=== PATIENT | female | born 1955 | race Two or more races ===

== ENCOUNTER 2019-04-16 16:03 | Inpatient (IN) | payer OTHER ==
[~2019-04-16] VITALS: Ht 160 cm; Wt 56.2 kg
[2019-04-16] MEDS ORDERED: MELO-105 PO (16:15)
[2019-04-16 16:27] LABS: BASOPHILS % (AUTO) 0.3 % (0.0-2.0); HEMOGLOBIN 12.3 g/dL (10.9-14.3); LYMPHOCYTES # (AUTO) 1.2 K/uL (20.0-40.0); LYMPHOCYTES % (AUTO) 7.8 % (20.5-51.5); MEAN CORPUSCULAR HEMOGLOBIN 31.5 uug (24.7-32.8); MEAN CORPUSCULAR HGB CONC 33 g/dL (32.3-35.6); MEAN CORPUSCULAR VOLUME 94.9 fL (75.5-95.3); MONOCYTES # (AUTO) 1.5 K/uL (2.0-10.0); MONOCYTES % (AUTO) 9.4 % (0.0-11.0); NEUTROPHILS % (AUTO) 82.5 % (38.5-71.5); PLATELET COUNT (AUTO) 237 K/uL (179-408); WHITE BLOOD COUNT (AUTO) 15.8 K/uL (3.8-11.8)
[2019-04-16 16:32] LABS: *BILIRUBIN,URIN 2+ (NEGATIVE); *BLOOD, URINE NEGATIVE (NEGATIVE); *KETONES,URINE NEGATIVE (NEGATIVE); *UROBILINOGEN,URINE 0.2 E.U./dl (NORMAL); LEUKOCYTE ESTERASE ,URINE NEGATIVE (NEGATIVE); NITRITE, URINE POSITIVE (NEGATIVE); PH,URINE 5.5 (5.0-8.0); UGLUCOSE NEGATIVE (NEGATIVE)
[2019-04-16 16:39] LABS: *CLARITY,URINE HAZY (CLEAR); *COLOR,URINE ORANGE (YELLOW)
[2019-04-16 16:40] LABS: BACTERIA,URINE MODERATE /HPF (NONE SEEN); RBC,URINE 0-3 /HPF (0-3); SQUAMOUS EPITHELIAL CELL,UR FEW /HPF (NONE SEEN)
[2019-04-16 16:41] LABS: COARSE GRANULAR CASTS,URINE 0-3 /LPF; MUCUS,URINE MANY /LPF (0-FEW)
[2019-04-16 16:51] LABS: CREATININE 1.9 mg/dL (0.6-1.3); POTASSIUM 4.1 mmol/L (3.5-5.1)
[2019-04-16 16:56] LABS: BILIRUBIN,DIRECT 0.2 mg/dL (0.0-0.2); TOTAL PROTEIN, SERUM 7.7 g/dL (6.4-8.2)
[2019-04-16] MEDS ORDERED: ONDANSETRON 4 MG/2 ML VIAL IV ONE (18:00)
[2019-04-16] MEDS ORDERED: MORPHINE SULFATE 4 MG/1 ML DISP.SYRIN IV ONE (18:00)
[2019-04-16] MEDS ORDERED: MORPHINE SULFATE 4 MG/1 ML DISP.SYRIN ONE (18:07)
[2019-04-16] MEDS ORDERED: ONDANSETRON 4 MG/2 ML VIAL ONE (18:07)
[2019-04-16] MEDS ORDERED: METRONIDAZOLE 500 MG/NS 100 ML PIGGYBACK IV ONE (18:45)
[2019-04-16] MEDS ORDERED: PIPERACILLIN SODIUM/TAZOBACTAM 3.375 G in IV DEXTROSE 5% 50 ML IV ONE (18:45)
[2019-04-16] MEDS ORDERED: METRONIDAZOLE 500 MG/NS 100ML 100 ML IV ONE (18:46)
[2019-04-16] MEDS ORDERED: PIPERACILLIN/TAZOBACTAM/D5W 50 ML IV ONE (18:47)
[2019-04-16] MEDS ORDERED: PIPERACILLIN/TAZOBACTAM/D5W 0 ML IV ONE (18:47)
--- NOTE | 2019-04-16 20:29 | NUR ---
Humza ANGELO CALLED BACK PT OK TO ADMIT TO [facility]
[2019-04-16] MEDS ORDERED: HYDROCODONE/APAP 5-325MG TABLET PO PRN (20:45)
[2019-04-16] MEDS ORDERED: MAGNESIUM HYDROXIDE 30 ML LIQUID UDC PO PRN (20:45)
[2019-04-16] MEDS ORDERED: Z GUARD REMEDY PASTE 57 GM TUBE TOP PRN (20:45)
[2019-04-16] MEDS ORDERED: MORPHINE SULFATE 2 MG/1 ML DISP.SYRIN IV PRN (20:45)
[2019-04-16] MEDS ORDERED: ONDANSETRON 4 MG/2 ML VIAL IV PRN (20:45)
[2019-04-16] MEDS ORDERED: PIPERACILLIN/TAZO 2.25 G in IV DEXTROSE 5% 50 ML IV SCH (20:45)
--- NOTE | 2019-04-16 21:15 | NUR ---
Pt. admitted to [facility] , under care of Dr. Crawley Belongs List completed, MRSA swab done
--- NOTE | 2019-04-16 21:30 | NUR ---
RECEIVED PATIENT VIA GURNEY FROM ER WITH NIECE AT BEDSIDE. PATIENT IS A/O X4. BANGLADESHI SPEAKING AND REQUIRES [employer]. PER NIECE, PATIENT DENIES PAIN AT THIS TIME. TEMPERATURE 101.3, ALL OTHER VSS. H/L INTACT AND PATENT. ORIENTED PATIENT TO ROOM AND CALL LIGHT. CALL LIGHT IN REACH. ALL NEEDS ATTENDED. WILL CONTINUE TO MONITOR AND ASSESS.
[2019-04-16] MEDS: ACETAMINOPHEN 325 MG TABLET PO PRN (21:40)
--- NOTE | 2019-04-16 21:40 | NUR ---
PATIENT GIVEN ICE BAGS FOR COOLING MEASURES AND TYLENOL 650MG PO PRN FOR ELEVATED TEMP. WILL CONTINUE TO MONITOR AND ASSESS.
[2019-04-16 21:45] VITALS: BP 114/55
[2019-04-16] MEDS: IV D5 1/2 NS 1000 ML 1,000 ML IV PRN (21:56)
--- NOTE | 2019-04-16 23:10 | NUR ---
RECHECKED PATIENTS TEMPERATURE, 98.3. PATIENT IS AFEBRILE. ALL NEEDS ATTENDED.
[2019-04-17] MEDS ORDERED: PIPERACILLIN/TAZOBACTAM/D5W 50 ML ONE (01:20)
[2019-04-17] MEDS ORDERED: PIPERACILLIN/TAZO 2.25 G in IV DEXTROSE 5% 50 ML IV ONE (04:00)
[2019-04-17 04:22] VITALS: BP 102/48
[2019-04-17] MEDS: IV D5 1/2 NS 1000 ML 1,000 ML IV PRN ×2 (06:14→21:28)
--- NOTE | 2019-04-17 06:43 | NUR ---
patient awake in bed. slept well. vss. ivf infusing well. vss. denies pain. all needs attended. will continue to monitor and assess.
[2019-04-17 06:47] LABS: CREATININE 1.6 mg/dL (0.6-1.3); MAGNESIUM 2.3 mg/dL (1.8-2.4); PHOSPHOROUS 2.9 mg/dL (2.5-4.9); POTASSIUM 3.4 mmol/L (3.5-5.1)
[2019-04-17 06:49] LABS: BASOPHILS % (AUTO) 0.1 % (0.0-2.0); EOSINOPHILS % (AUTO) 0.3 % (0.0-7.0); HEMATOCRIT 34.5 % (31.2-41.9); HEMOGLOBIN 11.7 g/dL (10.9-14.3); LYMPHOCYTES % (AUTO) 8.5 % (20.5-51.5); MEAN CORPUSCULAR HEMOGLOBIN 32.4 uug (24.7-32.8); MEAN CORPUSCULAR HGB CONC 34 g/dL (32.3-35.6); MEAN CORPUSCULAR VOLUME 95.8 fL (75.5-95.3); MONOCYTES % (AUTO) 8.9 % (0.0-11.0); NEUTROPHILS # (AUTO) 9.2 K/uL (1.8-8.9); NEUTROPHILS % (AUTO) 82.2 % (38.5-71.5); PLATELET COUNT (AUTO) 199 K/uL (179-408); WHITE BLOOD COUNT (AUTO) 11.2 K/uL (3.8-11.8)
--- NOTE | 2019-04-17 08:00 | NUR ---
Received pt. resting in bed alert oriented x4 pashto speaking. Pt. has IV in L AC 20 gauge intact patent running prescribed fluids. Pt. c/o pain in abdomen will assess pain and provide PRN pain mediations. Pt. NPO since midnight. Awaiting surgery. Safety measures in place. Call light within reach. Will continue to monitor pt.
[2019-04-17] MEDS: PANTOPRAZOLE SODIUM 40 MG VIAL IV SCH (08:30)
[2019-04-17] MEDS ORDERED: POTASSIUM CHLORIDE 50 ML IV SCH (11:30)
[2019-04-17 11:58] VITALS: BP 85/44
[2019-04-17] MEDS ORDERED: BUPIVACAINE/EPI PF 0.25% 30 ML VIAL ONE (13:05)
[2019-04-17] MEDS ORDERED: LIDOCAINE 0.5% MPF 50 ML VIAL ONE (13:05)
[2019-04-17] MEDS ORDERED: MIDAZOLAM HCL 10 MG/2 ML VIAL ONE (13:29)
[2019-04-17] MEDS ORDERED: FLUMAZENIL 0.5 MG/5 ML VIAL ONE (13:29)
[2019-04-17] MEDS ORDERED: ROCURONIUM BROMIDE 50 MG/5 ML VIAL ONE (13:30)
[2019-04-17] MEDS: PIPERACILLIN/TAZOBACTAM/D5W 3.375 G in IV DEXTROSE 5% 50 ML IV SCH ×2 (14:00→21:27)
--- NOTE | 2019-04-17 14:00 | NUR ---
Pt. left to surgery. Provided OR nurses with Zosyn as they stated they will give this to the patient in OR. Pt. in stable condition. Safety measures in place.
[2019-04-17] MEDS ORDERED: PROPOFOL 200 MG/20 ML BOTTLE IV ONE (14:30)
[2019-04-17] MEDS ORDERED: IV NORMAL SALINE 1000 ML BAG IV ONE ×2 (14:30)
[2019-04-17] MEDS ORDERED: GLYCOPYRROLATE 0.2 MG/ML VIAL IJ ONE (14:30)
[2019-04-17] MEDS ORDERED: IV LACTATED RINGERS SOLUTION 1,000 ML BAG IV ONE (14:30)
[2019-04-17] MEDS ORDERED: DEXAMETHASONE SOD PHOSPHATE 4 MG INJ IV ONE (14:30)
[2019-04-17] MEDS ORDERED: NEOSTIGMINE METHYLSULFATE 10 MG/10 ML VIAL IM ONE (14:30)
[2019-04-17] MEDS ORDERED: LIDOCAINE-MPF 2% 5 ML VIAL IJ ONE (14:30)
[2019-04-17] MEDS ORDERED: ETOMIDATE 20 MG/10 ML VIAL IV ONE (14:30)
[2019-04-17] MEDS ORDERED: FENTANYL CITRATE 100 MCG/2 ML AMPUL ONE (14:41)
[2019-04-17] MEDS ORDERED: ONDANSETRON 4 MG/2 ML VIAL ONE (14:42)
--- NOTE | 2019-04-17 16:00 | NUR ---
Received pt. back from surgery. Pt. denies pain/ discomfort. Pt. denies SOB/ difficulty breathing. Pt. on 2L NC. Pt. has IV in L AC 20 gauge intact patent running prescribed fluids. Safety measures in place. Call light within reach. Will continue to monitor pt.
[2019-04-17 16:10] VITALS: BP 107/56
[2019-04-17] MEDS: MORPHINE SULFATE 4 MG/1 ML DISP.SYRIN IV PRN (16:46)
[2019-04-17 20:41] VITALS: BP 109/56
[2019-04-18] MEDS: PIPERACILLIN/TAZOBACTAM/D5W 3.375 G in IV DEXTROSE 5% 50 ML IV SCH ×3 (05:06→22:14)
[2019-04-18] MEDS: IV D5 1/2 NS 1000 ML 1,000 ML IV PRN ×2 (05:06→21:30)
--- NOTE | 2019-04-18 06:09 | NUR ---
patient received in bed with family at bedside. no signs of acute distress and v/s stable throughout shift. afebrile. dvt pumps on. IV site patient and intact on left hand. denies any pain. will continue to monitor and endorse care to morning nurse.
[2019-04-18] MEDS: PANTOPRAZOLE SODIUM 40 MG VIAL IV SCH (06:31)
[2019-04-18 06:33] VITALS: BP 118/53
[2019-04-18 06:37] LABS: BASOPHILS % (AUTO) 0.1 % (0.0-2.0); HEMATOCRIT 31.4 % (31.2-41.9); HEMOGLOBIN 10.6 g/dL (10.9-14.3); LYMPHOCYTES # (AUTO) 0.5 K/uL (20.0-40.0); LYMPHOCYTES % (AUTO) 4.7 % (20.5-51.5); MEAN CORPUSCULAR HEMOGLOBIN 32.4 uug (24.7-32.8); MEAN CORPUSCULAR HGB CONC 34 g/dL (32.3-35.6); MEAN CORPUSCULAR VOLUME 95.7 fL (75.5-95.3); MONOCYTES # (AUTO) 0.6 K/uL (2.0-10.0); MONOCYTES % (AUTO) 6.5 % (0.0-11.0); NEUTROPHILS # (AUTO) 8.7 K/uL (1.8-8.9); NEUTROPHILS % (AUTO) 88.7 % (38.5-71.5); PLATELET COUNT (AUTO) 218 K/uL (179-408); RED BLOOD CELL COUNT(AUTO) 3.28 MIL/uL (3.63-4.92); WHITE BLOOD COUNT (AUTO) 9.8 K/uL (3.8-11.8)
[2019-04-18 06:56] LABS: CREATININE 0.9 mg/dL (0.6-1.3); MAGNESIUM 2.3 mg/dL (1.8-2.4); PHOSPHOROUS 2.3 mg/dL (2.5-4.9); POTASSIUM 3.8 mmol/L (3.5-5.1)
--- NOTE | 2019-04-18 07:33 | NUR ---
Received pt. resting in bed alert oriented x4 Hebrew speaking. Pt. denies pain/ discomfort at this time. Pt. ambulating to bathroom and using incentive spirometer. IV in L hand 22 gauge intact patent running prescribed fluids. Safety measures in place. Call light within reach. Will continue to monitor pt.
[2019-04-18] MEDS: MORPHINE SULFATE 4 MG/1 ML DISP.SYRIN IV PRN (08:46)
[2019-04-18 11:21] VITALS: BP 113/57
[2019-04-18] MEDS ORDERED: NEUTRA PHOS PACKET PO ONE (15:15)
[2019-04-18 15:46] VITALS: BP 112/50
--- NOTE | 2019-04-18 18:39 | NUR ---
Pt cleared by hospitalist but not by surgeon Dr. Saunders for discharge due to perforated appendix Pt. needs IV antibiotic treatment for a couple days before discharge. Dr. Saunders saw pt. at bedside. Pt. understands plan of care. Educated pt. use incentive spirometer and ambulate around unit. Pt. agrees. Provided pt. with prune juice to prevent constipation. New IV inserted in left forearm 20 gauge intact patent running prescribed fluid. Pt. tolerates soft diet well. Safety measures in place. Call light within reach. Will continue to monitor pt.
--- NOTE | 2019-04-18 20:00 | NUR ---
RECEIVED PATIENT AWAKE IN BED. A/O X4. MALAGASY SPEAKING, BUT ABLE TO MAKE MINIMAL NEEDS KNOWN. DENIES PAIN OR DISCOMFORT AT THIS TIME. NO RESP. DISTRESS NOTED. H/L INTACT AND PATENT, NOTED TO LEFT WRIST #20 GAUGE. IVF INFUSING WELL. PATIENT ASKED TO BE DISCONNECTED TO AMBULATES IN HALLWAY. CALL LIGHT IN REACH. ALL NEEDS ATTENDED. WILL CONTINUE TO MONITOR AND ASSESS.
[2019-04-18 20:12] VITALS: BP 129/67
[2019-04-18] MEDS: ACETAMINOPHEN 325 MG TABLET PO PRN (22:56)
[2019-04-19 05:26] VITALS: BP 122/68
[2019-04-19] MEDS: PIPERACILLIN/TAZOBACTAM/D5W 3.375 G in IV DEXTROSE 5% 50 ML IV SCH ×2 (05:46→14:03)
[2019-04-19] MEDS: IV D5 1/2 NS 1000 ML 1,000 ML IV PRN ×2 (05:46→14:03)
--- NOTE | 2019-04-19 06:35 | NUR ---
PATIENT AWAKE IN BED. DENIES PAIN. IVF INFUSING WELL. CALL LIGHT IN REACH .ALL NEEDS ATTENDED. WILL CONTINUE TO MONITOR AND ASSESS,
[2019-04-19 06:36] LABS: BASOPHILS % (AUTO) 0.4 % (0.0-2.0); EOSINOPHILS % (AUTO) 0.5 % (0.0-7.0); HEMATOCRIT 30.1 % (31.2-41.9); HEMOGLOBIN 10.1 g/dL (10.9-14.3); LYMPHOCYTES # (AUTO) 1.2 K/uL (20.0-40.0); LYMPHOCYTES % (AUTO) 18.5 % (20.5-51.5); MEAN CORPUSCULAR HEMOGLOBIN 32.2 uug (24.7-32.8); MEAN CORPUSCULAR HGB CONC 34 g/dL (32.3-35.6); MEAN CORPUSCULAR VOLUME 95.7 fL (75.5-95.3); MONOCYTES # (AUTO) 0.6 K/uL (2.0-10.0); MONOCYTES % (AUTO) 8.4 % (0.0-11.0); NEUTROPHILS # (AUTO) 4.8 K/uL (1.8-8.9); NEUTROPHILS % (AUTO) 72.2 % (38.5-71.5); PLATELET COUNT (AUTO) 226 K/uL (179-408); RED BLOOD CELL COUNT(AUTO) 3.15 MIL/uL (3.63-4.92); WHITE BLOOD COUNT (AUTO) 6.7 K/uL (3.8-11.8)
[2019-04-19 06:53] LABS: CREATININE 0.8 mg/dL (0.6-1.3); MAGNESIUM 1.9 mg/dL (1.8-2.4); PHOSPHOROUS 2.3 mg/dL (2.5-4.9); POTASSIUM 3.6 mmol/L (3.5-5.1)
[2019-04-19] MEDS ORDERED: PANTOPRAZOLE SODIUM 40 MG TABLET.DR PO SCH (07:00)
--- NOTE | 2019-04-19 08:00 | NUR ---
RECEIVED PATIENT AWAKE IN BED. A/O X4. UZBEK SPEAKING. DENIES PAIN OR DISCOMFORT AT THIS TIME. NO RESP. DISTRESS NOTED. IV INTACT AND PATENT, NOTED TO LEFT WRIST #20 GAUGE. IVF INFUSING WELL. CALL LIGHT IN REACH. ALL NEEDS ATTENDED. WILL CONTINUE TO MONITOR AND ASSESS.
[2019-04-19] MEDS ORDERED: HYDR-3326 PO (10:34)
[2019-04-19] MEDS ORDERED: CIPR-262 PO (10:34)
[2019-04-19] MEDS ORDERED: METR500T PO (10:34)
[2019-04-19 11:05] VITALS: BP 123/60
--- NOTE | 2019-04-19 12:00 | NUR ---
PT RESTING COMFORTABLY. NO ACUTE DISTRESS NOTED. NO SOB NOTED. WILL CONTINUE TO MONITOR.
[2019-04-19 15:30] VITALS: BP 119/66
[2019-04-19] MEDS ORDERED: NEUTRA PHOS PACKET PO ONE (15:45)
--- NOTE | 2019-04-19 18:00 | NUR ---
ORDER TO DISCHARGE RECEIVED. PT ALERT AND ORIENTED X3. NO ACUTE DISTRESS OR SOB NOTED. IV REMOVED INTACT. DISCHARGE INSTRUCTIONS AND PRESCRIPTIONS GIVEN TO PATIENT WITH GOOD UNDERSTANDING. BELONGINGS LIST SIGNED. PICS TAKEN. BELONGINGS RETURNED. WILL GIVE REPORT TO INCOMING SHIFT RN FOR DISCHARGE.
--- NOTE | 2019-04-19 19:45 | NUR ---
PATIENT ACCOMPANIED WITH WHEELCHAIR DOWN TO LOBBY, AWAITING CAR. GAIT STEADY. PATIENT STABLE. FAMILY MEMBER BROUGHT CAR TO PATIENT PICK-UP AREA. PATIENT LEFT WITH ALL BELONGINGS.
== END 2019-04-19 19:45 | disposition home or self-care (01) | DRG 853 ==
LOC: ER 16:10 → MEDSURG3 21:18
PROVIDERS: ADMIT Student in an Organized Health Care Education/Training Program; ATTEND Student in an Organized Health Care Education/Training Program
PROC: 0DTJ4ZZ Resection of Appendix, Percutaneous Endoscopic Approach (ICD-10-PCS; principal; 2019-04-17)
DX: A41.9 Sepsis, unspecified organism (principal); K35.33 Acute appendicitis with perforation, localized peritonitis, and gangrene, with abscess; N17.0 Acute kidney failure with tubular necrosis; E87.1 Hypo-osmolality and hyponatremia; E78.5 Hyperlipidemia, unspecified; M81.0 Age-related osteoporosis without current pathological fracture; E87.6 Hypokalemia; D30.02 Benign neoplasm of left kidney; K43.9 Ventral hernia without obstruction or gangrene; M19.90 Unspecified osteoarthritis, unspecified site; I70.8 Atherosclerosis of other arteries; I10 Essential (primary) hypertension; D35.02 Benign neoplasm of left adrenal gland; Z79.83 Long term (current) use of bisphosphonates; Z90.710 Acquired absence of both cervix and uterus; N30.90 Cystitis, unspecified without hematuria
CPT/HCPCS: 36415; 70030-TC; 83605; 83690; 83735; 84100; 85025; 85610; 87086; 93005; A4663; C9113; G0378; J1100; J2250; J2270; J2405; J2543; J2710; J3010; J3480; J3490; J7030; J7060; J7120